=== PATIENT | male | born 1950 | race Two or more races ===

== ENCOUNTER 2018-01-15 14:49 | Inpatient (IN) | payer BC ==
[~2018-01-15] VITALS: Ht 175.3 cm; Wt 76.2 kg
== END 2018-01-19 13:28 | disposition home or self-care (01) | DRG 439 ==
LOC: ER 14:49 → MEDJ 01-16 11:50
PROC: BW40ZZZ Ultrasonography of Abdomen (ICD-10-PCS; principal; 2018-01-16)
PROC: BW20ZZZ Computerized Tomography (CT Scan) of Abdomen (ICD-10-PCS; 2018-01-18)
DX: K85.80 Other acute pancreatitis without necrosis or infection (principal); J98.11 Atelectasis